=== PATIENT | male | born 1990 | race Two or more races ===

== ENCOUNTER 2018-10-25 21:54 | Emergency (ER) | payer SELFPAY ==
[~2018-10-25] VITALS: Ht 188 cm; Wt 55.0 kg
[2018-10-25] MEDS ORDERED: amox tr/potassium clavulanate 875/125mg TAB PO ONE (22:00)
[2018-10-25] MEDS ORDERED: AMOX-422 PO (22:02)
[2018-10-25 22:09] VITALS: BP 142/81
== END 2018-10-25 22:13 ==
LOC: ER 21:55
DX: S71.132A Puncture wound without foreign body, left thigh, initial encounter (principal); Z79.2 Long term (current) use of antibiotics; W54.0XXA Bitten by dog, initial encounter; Y93.89 Activity, other specified; Y92.89 Other specified places as the place of occurrence of the external cause; Y99.8 Other external cause status
CPT/HCPCS: 99285

== ENCOUNTER 2019-10-23 11:08 | Emergency (ER) | payer MEDICAID, OTHER ==
[~2019-10-23] VITALS: Ht 188 cm; Wt 68.2 kg
[2019-10-23] MEDS ORDERED: ondansetron/PF 4mg/2ml inj IV ONE (11:25)
[2019-10-23] MEDS ORDERED: phenobarbital inj 260 MG in normal saline 100ml IV soln 100 ML IV ONE (11:25)
[2019-10-23] MEDS ORDERED: magnesium 2GM in 50ml NS 50 ML IV ONE (11:25)
[2019-10-23] MEDS ORDERED: thiamine inj. 100 MG in normal saline 100ml IV soln 99 ML IV ONE (11:25)
[2019-10-23] MEDS ORDERED: normal saline 1000ML IV soln IVB ONE (11:25)
[2019-10-23 11:42] LABS: BASOPHILS # (AUTO) 0.1 X10'3 (0-0.2); BASOPHILS % (AUTO) 1.1 % (0-1); EOSINOPHILS % (AUTO) 0.2 % (0-6); HEMATOCRIT 39.3 % (42.0-52.0); HEMOGLOBIN 13.4 g/dl (14.0-17.9); LYMPHOCYTES % (AUTO) 13.3 % (21-51); MEAN CORPUSCULAR HEMOGLOBIN 30.9 PG (27.0-31.0); MEAN CORPUSCULAR HGB CONC 34.1 g/dL (33.0-36.5); MEAN CORPUSCULAR VOLUME 90.6 FL (78-98); MEAN PLATELET VOLUME 7.7 FL (7.4-10.4); MONOCYTES # (AUTO) 0.6 X10'3 (0-0.9); MONOCYTES % (AUTO) 8.8 % (2-12); NEUTROPHILS # (AUTO) 5.5 X10'3 (1.8-7.7); NEUTROPHILS % (AUTO) 76.6 % (42-75); PLATELET COUNT 107 X10'3 (140-440); RED BLOOD COUNT 4.33 X10'6 (4.70-6.10); RED CELL DISTRIBUTION WIDTH 13.9 % (11.5-14.5); WHITE BLOOD COUNT 7.2 X10'3 (4.5-11.0)
[2019-10-23 11:59] LABS: ALANINE AMINOTRANSFERASE 213 U/L (12-78); ALBUMIN 4.2 G/DL (3.4-5.0); ALBUMIN/GLOBULIN RATIO 1.1 (1.1-1.5); ALKALINE PHOSPHATASE 66 IU/L (46-116); ANION GAP 23 (8-16); ASPARTATE AMINO TRANSFERASE 255 U/L (10-37); BILIRUBIN,TOTAL 1.6 MG/DL (0.1-1.0); BLOOD UREA NITROGEN 14 MG/DL (7-18); BUN/CREATININE RATIO 11.6 (5.4-32.0); CALCIUM 8.6 MG/DL (8.5-10.1); CHLORIDE 95 MMOL/L (99-107); CREATININE 1.21 MG/DL (0.60-1.10); ETHANOL < 0.010 GM/DL (0.0-0.010); GLUCOSE 148 MG/DL (70-104); MAGNESIUM 1.6 MG/DL (1.5-2.4); SODIUM 136 MMOL/L (135-145); TOTAL CARBON DIOXIDE 18.2 MMOL/L (24-32); eGFR 71 ML/MIN
[2019-10-23 12:00] LABS: POTASSIUM 2.8 MMOL/L (3.5-5.1)
[2019-10-23] MEDS ORDERED: potassium Cl 20 mEq SR tablet PO ONE (12:05)
[2019-10-23] MEDS ORDERED: POTA20TA19 PO (12:12)
[2019-10-23] MEDS ORDERED: phenobarbital inj 130 MG in normal saline 100ml IV soln 100 ML IV ONE (12:15)
[2019-10-23 14:04] VITALS: BP 136/74
== END 2019-10-23 14:06 | disposition home or self-care (01) ==
LOC: ER 11:08
DX: F10.239 Alcohol dependence with withdrawal, unspecified (principal); E87.6 Hypokalemia; F12.90 Cannabis use, unspecified, uncomplicated; F15.90 Other stimulant use, unspecified, uncomplicated; Y90.0 Blood alcohol level of less than 20 mg/100 ml; Z79.899 Other long term (current) drug therapy; Z59.0 Homelessness
CPT/HCPCS: 36415; 80053; 80320; 82948; 83735; 85025; 93005; 96365; 96366; 96368; 96375; 99284; J2405; J2560; J3411; J3475; J7030